=== PATIENT | male | born 1955 | race Caucasian/White ===

== ENCOUNTER 2016-04-17 13:22 | Observation (INO) | payer OTHER ==
[~2016-04-17] VITALS: Ht 182.9 cm; Wt 84.0 kg
[~2016-04-17 13:22] MED LIST: ALBU6.7H INH; ASPI325T PO; CELE40TA PO; HYDR10TA16 PO; LISI-590 PO; PLAV75TA PO; PRAV10 PO; RANI150 PO; XANA1TAB6 PO
[2016-04-17 13:30] VITALS: BP 139/96; PULSE 86; RESP 17; TEMP 97.8; O2SAT 97
[2016-04-17 13:40] VITALS: RESP 18; O2SAT 98
[2016-04-17] MEDS ORDERED: NORC5TAB PO (13:40)
[2016-04-17] MEDS ORDERED: LEVO.1 PO (13:40)
[2016-04-17] MEDS ORDERED: DIVA250ER PO (13:40)
[2016-04-17] MEDS ORDERED: PRAV40TA2 PO (13:40)
[2016-04-17] MEDS ORDERED: XANA1TAB2 PO (13:40)
[2016-04-17] MEDS ORDERED: ASPI325T PO (13:40)
[2016-04-17] MEDS ORDERED: REST30CA PO (13:40)
[2016-04-17] MEDS ORDERED: NORV2.5T PO (13:40)
[2016-04-17] MEDS ORDERED: LISI40TA PO ×2 (13:40→14:50)
[2016-04-17] MEDS ORDERED: SODIUM CHLORIDE 0.9% FLUSH 5 ML FLUSH IVF PRN (13:45)
--- NOTE | 2016-04-17 13:45 | PD ---
HPI Chief Complaint: Neuro Symptoms/ Deficits Time Seen by Provider: 13:39 Travel History International Travel<30 days: No Contact w/Intl Traveler<30days: No Traveled to known affect area: No History of Present Illness HPI 61-year-old male presents to the emergency department for altered mental status. Apparently, the patient had a doctor's appointment this morning at 10: 15. He saw a nurse practitioner at their office. She states he was confused at that time, but he was discharged and became worse. At that time EMS was called. The patient cancer his name and knows who the president is. However, he thinks the year is 2011 and believes he is in [place]. The patient states he feels "bad". He states this started 3 days ago. He does report a history of CVA, TIA, seizures. His primary care physician is Dr. Mahajan. He does see Dr. Guzman, neurologist. The patient states he has a headache. He denies any fevers. PFSH Past Medical History Hx Anticoagulant Therapy: Yes (ASA) Arthritis: Yes Asthma: Yes (CHILDHOOD) Anxiety: Yes Depression: Yes Cancer: No Cardiovascular Problems: Yes High Cholesterol: Yes Cerebrovascular Accident: Yes Diabetes: No Diminished Hearing: No Endocrine: Yes GERD: Yes Glaucoma: No Genitourinary: Yes Hepatitis: No Hiatal Hernia: No Hypertension: Yes Immune Disorder: No Kidney Stones: Yes Musculoskeletal: Yes (CHRONIC BACK PAIN) Neurologic: Yes Psychiatric: Yes Reproductive: No Respiratory: Yes Seizures: Yes Thyroid Disease: Yes (HX THYROID STORM) Ulcer: Yes (PUD) Past Surgical History Abdominal Surgery: Yes (CHOLECYSTECTOMY) Cholecystectomy: Yes Pacemaker: No Social History Alcohol Use: No (quit 8 years ago) Tobacco Use: Yes (1/2 PPD) Substance Use: Yes (MARIJUANA) Allergies-Medications (Allergen,Severity, Reaction): Coded Allergies: Penicillin (Verified Allergy, Severe, THROAT SWELLING, 04/17/16) Reported Meds & Prescriptions Reported Meds & Active Scripts Active Reported Ventolin Hfa 18 GM Inh (Albuterol Sulfate) 90 Mcg/Act Aer 1-2 Puff INH QID PRN Lisinopril 40 Mg Tab 40 Mg PO BID Divalproex ER (Divalproex Sodium) 500 Mg Tab 500 Mg PO TID Topamax (Topiramate) 100 Mg Tab 100 Mg PO TID Hydrocodone-Acetaminophen 10-325 mg Tab 1 Tab PO QID Norvasc (Amlodipine Besylate) 2.5 Mg Tab 2.5 Mg PO DAILY Pravastatin 40 Mg Tab 40 Mg PO HS Restoril (Temazepam) 30 Mg Cap 30 Mg PO HS PRN Xanax (Alprazolam) 1 Mg Tab 1 Mg PO TID Synthroid (Levothyroxine Sodium) 100 Mcg Tab 100 Mcg PO DAILY Aspirin 325 Mg Tab 325 Mg PO DAILY Review of Systems Except as stated in HPI: all other systems reviewed are Neg Physical Exam Narrative GENERAL: Well-developed well-nourished elderly male patient, drowsy. Oriented to self. SKIN: Warm and dry. HEAD: Normocephalic. Atraumatic. EYES: No scleral icterus. No injection or drainage. PERRLA. Patient unable to completely EOMs. NECK: Supple, trachea midline. No JVD or lymphadenopathy. CARDIOVASCULAR: Regular rate and rhythm without murmurs, gallops, or rubs. RESPIRATORY: Breath sounds equal bilaterally. No accessory muscle use. Lungs sounds are clear to auscultation GASTROINTESTINAL: Abdomen soft, non-tender, nondistended. MUSCULOSKELETAL: No cyanosis, or edema. Bilateral upper and lower extremity strength 5/5. All extremities are neurovascularly intact. [id number] is normal bilaterally. However, patient is unable to follow commands to complete finger to nose. BACK: Nontender without obvious deformity. No CVA tenderness. Data Data Last Documented VS Vital Signs Date Time Temp Pulse Resp B/P Pulse Ox O2 Delivery O2 Flow Rate FiO2 04/17/16 14:58 77 17 105/60 97 Room Air 04/17/16 13:30 97.8 Orders Electrocardiogram (04/17/16 ) Ammonia (04/17/16 13:37) Complete Blood Count With Diff (04/17/16 13:37) Comprehensive Metabolic Panel (04/17/16 13:37) Creatine Kinase (Cpk) (04/17/16 13:37) Prothrombin Time / Inr (Pt) (04/17/16 13:37) Act Partial Throm Time (Ptt) (04/17/16 13:37) Troponin I (04/17/16 13:37) Urinalysis - C+S If Indicated (04/17/16 13:37) Chest, Single Ap (04/17/16 13:37) Ct Brain W/O Iv Contrast(Rout) (04/17/16 13:37) Blood Glucose (04/17/16 13:37) Ecg Monitoring (04/17/16 13:37) Iv Access Insert/Monitor (04/17/16 13:37) Oximetry (04/17/16 13:37) Sodium Chloride 0.9% Flush (Ns Flush) (04/17/16 13:45) Drug Screen, Random Urine (04/17/16 13:37) Alcohol (Ethanol) (04/17/16 13:37) Labs Laboratory Tests Test 04/17/16 14:00 White Blood Count 8.9 TH/MM3 Red Blood Count 3.79 MIL/MM3 Hemoglobin 13.0 GM/DL Hematocrit 37.8 % Mean Corpuscular Volume 99.9 FL Mean Corpuscular Hemoglobin 34.3 PG Mean Corpuscular Hemoglobin 34.3 % Concent Red Cell Distribution Width 14.0 % Platelet Count 203 TH/MM3 Mean Platelet Volume 8.5 FL Neutrophils (%) (Auto) 53.1 % Lymphocytes (%) (Auto) 33.5 % Monocytes (%) (Auto) 9.7 % Eosinophils (%) (Auto) 3.2 % Basophils (%) (Auto) 0.5 % Neutrophils # (Auto) 4.8 TH/MM3 Lymphocytes # (Auto) 3.0 TH/MM3 Monocytes # (Auto) 0.9 TH/MM3 Eosinophils # (Auto) 0.3 TH/MM3 Basophils # (Auto) 0.0 TH/MM3 CBC Comment DIFF FINAL Differential Comment Prothrombin Time 11.3 SEC Prothromb Time International 1.0 RATIO Ratio Activated Partial 27.8 SEC Thromboplast Time Sodium Level 145 MEQ/L Potassium Level 4.1 MEQ/L Chloride Level 115 MEQ/L Carbon Dioxide Level 22.7 MEQ/L Anion Gap 7 MEQ/L Blood Urea Nitrogen 23 MG/DL Creatinine 0.98 MG/DL Estimat Glomerular Filtration 78 ML/MIN Rate Random Glucose 91 MG/DL Calcium Level 8.1 MG/DL Total Bilirubin 0.2 MG/DL Aspartate Amino Transf 31 U/L (AST/SGOT) Alanine Aminotransferase 62 U/L (ALT/SGPT) Alkaline Phosphatase 73 U/L Ammonia 88 MCMOL/L Total Creatine Kinase 36 U/L Troponin I LESS THAN 0.02 NG/ML Total Protein 7.0 GM/DL Albumin 3.4 GM/DL Ethyl Alcohol Level LESS THAN 3 MG/DL MDM Medical Decision Making Medical Screen Exam Complete: Yes Emergency Medical Condition: Yes Medical Record Reviewed: Yes Interpretation(s) Last Impressions Head CT 04/17/16 1337 Signed Impressions: Service Date/Time: April 14:23 - CONCLUSION: Normal examination. Kartik Mcrae MD Chest X-Ray 04/17/16 1337 Signed Impressions: Service Date/Time: April 14:22 - CONCLUSION: Normal examination. Kartik Mcrae MD Differential Diagnosis TIA versus CVA versus electrolyte abnormality versus intracranial hemorrhage Narrative Course 61-year-old male presents to the emergency department for altered mental status from his primary care physician's office. Upon my assessment, the patient is only oriented to self. However, apparently 5 minutes later, the patient is now alert and oriented to person, place and time. EKG, CBC, CMP, CK, troponin, PTT , PTT/INR, UA, chest x-ray, CT of the brain, urine drug screen, alcohol level, ammonia level are ordered and pending. EKG shows sinus rhythm, heart rate 75, no acute ST changes. CBC shows no acute abnormalities. CMP shows no acute abnormality. CK is 36. Troponin is less than 0.02. Ammonia level is elevated at 88. Coags are unremarkable. Alcohol level is less than 3. UDS and UA are pending. Chest x-ray is normal. CT of the brain is normal. I discussed results with the patient. The patient will be admitted for 23 hour observation for TIA. [facility] is paged for admission. Dr. Knowles accepted admission. Yissel Franco Apr 17, 2016 13:45
[2016-04-17 14:07] LABS: AUTOMATED NEUTROPHIL # 4.8 TH/MM3 (1.8-7.7); BASOPHIL % 0.5 % (0.0-2.0); EOSINOPHIL # 0.3 TH/MM3 (0-0.4); EOSINOPHIL % 3.2 % (0.0-4.0); HEMATOCRIT 37.8 % (39.0-51.0); HEMO FLAGS DIFF FINAL; LYMPH % 33.5 % (9.0-44.0); MEAN CELL VOLUME 99.9 FL (80.0-100.0); MEAN CORPUSCULAR HEMOGLOBIN 34.3 PG (27.0-34.0); MEAN CORPUSCULAR HGB CONC 34.3 % (32.0-36.0); MONO % 9.7 % (0.0-8.0); NEUT % 53.1 % (16.0-70.0); PLATELET COUNT 203 TH/MM3 (150-450); RED BLOOD COUNT 3.79 MIL/MM3 (4.50-5.90); WHITE BLOOD COUNT 8.9 TH/MM3 (4.0-11.0)
[2016-04-17 14:13] LABS: APTT (PATIENT) 27.8 SEC (24.3-30.1); PROTHROMBIN TIME - PATIENT 11.3 SEC (9.8-11.6)
[2016-04-17 14:28] LABS: ALT (GPT) 62 U/L (12-78); ANION GAP 7 MEQ/L (5-15); AST (GOT) 31 U/L (15-37); BICARBONATE 22.7 MEQ/L (21.0-32.0); BLOOD UREA NITROGEN 23 MG/DL (7-18); CHLORIDE 115 MEQ/L (98-107); GLOMERULAR FILTRATION RATE 78 ML/MIN (>89); POTASSIUM 4.1 MEQ/L (3.5-5.1); SODIUM (NA) 145 MEQ/L (136-145)
[2016-04-17 14:32] LABS: ALKALINE PHOSPHATASE 73 U/L (45-117); TOTAL BILIRUBIN ADULT 0.2 MG/DL (0.2-1.0)
[2016-04-17 14:34] LABS: CREATINE KINASE 36 U/L (39-308)
--- NOTE | 2016-04-17 14:42 | RADRPT ---
EXAM DATE/TIME: 04/17/2016 14:23 [facility] COMPARISON: CT BRAIN W/O CONTRAST, November 30, 2012, 15:02. INDICATIONS : Altered mental status. Confused. RADIATION DOSE: 37.41 CTDIvol (mGy) MEDICAL HISTORY : Seizures. Cerebrovascular disease. Hypertension. SURGICAL HISTORY : None. ENCOUNTER: Initial ACUITY: 1 day PAIN SCALE: 0/10 LOCATION: cranial TECHNIQUE: Multiple contiguous axial images were obtained of the head. Using automated exposure control and adj ustment of the mA and/or kV according to patient size, radiation dose was kept as low as reasonably a chievable to obtain optimal diagnostic quality images. FINDINGS: CEREBRUM: The ventricles are normal for age. No evidence of midline shift, mass lesion, hemorrhage or acute in farction. No extra-axial fluid collections are seen. POSTERIOR FOSSA: The cerebellum and brainstem are intact. The 4th ventricle is midline. The cerebellopontine angle i s unremarkable. EXTRACRANIAL: The visualized portion of the orbits is intact. SKULL: The calvaria is intact. No evidence of skull fracture. CONCLUSION: Normal examination. Kartik Mcrae MD on April 17, 2016 at 14:41 Board Certified Radiologist. This report was verified electronically.
[2016-04-17] MEDS ORDERED: TOPA100T11 PO (14:44)
[2016-04-17] MEDS ORDERED: HYDR-3583 PO (14:44)
[2016-04-17] MEDS ORDERED: DIVA500T3 PO (14:50)
[2016-04-17] MEDS ORDERED: VENTAER INH (14:50)
[2016-04-17 14:58] VITALS: BP 105/60; PULSE 77; RESP 17; O2SAT 97
--- NOTE | 2016-04-17 15:08 | RADRPT ---
EXAM DATE/TIME: 04/17/2016 14:22 [facility] COMPARISON: CHEST SINGLE AP, September 24, 2012, 13:27. INDICATIONS : Patient states he had chest pain that started this morning. MEDICAL HISTORY : None. SURGICAL HISTORY : None. ENCOUNTER: Initial ACUITY: 1 day PAIN SCORE: 4/10 LOCATION: chest FINDINGS: A single view of the chest demonstrates the lungs to be symmetrically aerated without evidence of mas s, infiltrate or effusion. The cardiomediastinal contours are unremarkable. Osseous structures are intact. CONCLUSION: Normal examination. Kartik Mcrae MD on April 17, 2016 at 15:06 Board Certified Radiologist. This report was verified electronically.
[2016-04-17] MEDS ORDERED: ONDANSETRON HCL 4 MG/2 ML VIAL IVP PRN (16:00)
[2016-04-17] MEDS ORDERED: MAGNESIUM HYDROXIDE SUSP 30 ML CUP PO PRN (16:00)
[2016-04-17] MEDS ORDERED: NALOXONE HCL 0.4 MG/ML AMP IV PRN (16:00)
[2016-04-17] MEDS ORDERED: ACETAMINOPHEN 325 MG TAB PO PRN (16:00)
[2016-04-17] MEDS ORDERED: SODIUM CHLORIDE 0.9% FLUSH 5 ML FLUSH FLUSH PRN (16:00)
[2016-04-17] MEDS ORDERED: TEMAZEPAM 15 MG CAP PO PRN (17:45)
[2016-04-17] MEDS ORDERED: ALBUTEROL SULFATE 90 MCG/ACT HFA 8 GM INHALER INH PRN (17:45)
[2016-04-17] MEDS ORDERED: PILL SPLITTER OTHER PRN (18:00)
[2016-04-17] MEDS ORDERED: ALPRAZolam 1 MG TAB PO SCH (18:00)
[2016-04-17] MEDS ORDERED: DIVALPROEX SODIUM E.R. 500 MG TAB PO SCH (18:00)
[2016-04-17] MEDS ORDERED: TOPIRAMATE 100 MG TAB PO SCH (18:00)
--- NOTE | 2016-04-17 18:02 | HHI.HP ---
HPI Service [facility] Primary Care Physician Unknown Admission Diagnosis TIA Diagnoses: Chief Complaint: Altered mental status, questionable TIA Travel History International Travel<30 Days: No Contact w/Intl Traveler <30 Da: No Traveled to Known Affected Are: No History of Present Illness Mr. Jolly is a 61-year-old male with primary medical history of seizures, CVA, TIA, anxiety, HTN, HLD, hypothyroidism who came in to the hospital for altered mental status. Patient states he was seen at his PCPs office yesterday - Dr. Mahajan. States he was advised to quit smoking, drinking although he quit 7 years ago, and gradually quit taking his Xanax. He was discharged home after the doctor's appointment but found today to be wandering around the parking lot and EMS was called for him. Patient states he hasn't been "feeling good, not having a good time, having headache." But all of it is better now. States he started to feel bad few days ago. Also have episode of seizure last week. States that he has weakly seizures described as tonic-clonic shaking. Denies any trauma or falling. States that he can feel his seizure is coming and he usually sits down. Patient reports being anxious, and nervous. Reports chronic cough secondary to smoking, otherwise denies congestion. On exam, patient denies any numbness, tingling sensation, weakness. Denies pain and discomfort. Denies SOB/ dyspnea. Denies chest pain, palpitations, dizziness. Denies fevers, chills, n/v/d. EKG shows sinus rhythm heart rate of 75, no ST changes noted. Labs reviewed CBC no significant abnormality, CMP no significant abnormality, low GFR 78, low calcium 8.1, high chloride 115. Elevated ammonia level at 88. CK at 36. Troponin less than 0.02. Alcohol less than 3. Chest x-ray showed normal examination. CT of the head showed normal examination. Review of Systems Except as stated in HPI: all other systems reviewed are Neg Past Family Social History Past Medical History CVA TIA 3 Seizure being followed by Dr. Guzman Arthritis Anxiety Depression GERD Chronic back pain Hypothyroidism PUD Hypertension Hyperlipidemia Past Surgical History Cholecystectomy Appendectomy Tonsillectomy Reported Medications Ventolin Hfa 18 GM Inh (Albuterol Sulfate) 90 Mcg/Act Aer 1-2 Puff INH QID PRN Lisinopril 40 Mg Tab 40 Mg PO BID Divalproex ER (Divalproex Sodium) 500 Mg Tab 500 Mg PO TID Topamax (Topiramate) 100 Mg Tab 100 Mg PO TID Hydrocodone-Acetaminophen 10-325 mg Tab 1 Tab PO QID Norvasc (Amlodipine Besylate) 2.5 Mg Tab 2.5 Mg PO DAILY Pravastatin 40 Mg Tab 40 Mg PO HS Restoril (Temazepam) 30 Mg Cap 30 Mg PO HS PRN Xanax (Alprazolam) 1 Mg Tab 1 Mg PO TID Synthroid (Levothyroxine Sodium) 100 Mcg Tab 100 Mcg PO DAILY Aspirin 325 Mg Tab 325 Mg PO DAILY Allergies: Coded Allergies: Penicillin (Verified Allergy, Severe, THROAT SWELLING, 04/17/16) Active Ordered Medications Current Medications Medications (Trade) Dose Ordered Sig/Long Route Start Time Stop Time Status Last Admin (NS Flush) 2 ml UNSCH PRN FLUSH 04/17/16 16:00 (NS Flush) 2 ml BID FLUSH 04/17/16 21:00 (Tylenol) 650 mg Q4H PRN PO 04/17/16 16:00 (Zofran Inj) 4 mg Q6H PRN IVP 04/17/16 16:00 (Milk Of Magnesia Liq) 30 ml Q12H PRN PO 04/17/16 16:00 (Narcan Inj) 0.4 mg UNSCH PRN IV 04/17/16 16:00 Family History Reports unknown family medical history Social History Lives with . Denies alcohol use. Quit 7 years ago Tobacco use half a pack a day current day smoker. Denies illicit drug use Physical Exam Vital Signs Vital Signs Date Time Temp Pulse Resp B/P Pulse Ox O2 Delivery O2 Flow Rate FiO2 04/17/16 14:58 77 17 105/60 97 Room Air 04/17/16 13:40 18 98 Room Air 04/17/16 13:30 97.8 86 17 139/96 97 04/17/16 13:30 76 18 Physical Exam GENERAL: This is a well-nourished, well-developed patient, anxious. SKIN: No rashes, ecchymoses or lesions. Cool and dry. HEAD: Atraumatic. Normocephalic. No temporal or scalp tenderness. EYES: Pupils equal round and reactive. Extraocular motions intact. No scleral icterus. No injection or drainage. ENT: Nose without bleeding. Throat without erythema. Uvula midline. Airway patent. Tongue midline. Dry oral mucosa. NECK: Trachea midline. No JVD or lymphadenopathy. CARDIOVASCULAR: Regular rate and rhythm without murmurs, gallops, or rubs. RESPIRATORY: Breath sounds equal bilaterally. No wheezes, rales, or rhonchi. Moderate air exchange. GASTROINTESTINAL: Abdomen soft, non-tender, nondistended. Bowel sounds active 4. MUSCULOSKELETAL: Extremities without clubbing, cyanosis, or edema. No joint tenderness, effusion, or edema noted. No calf tenderness. Negative Homans sign bilaterally. NEUROLOGICAL: Awake and alert. Cranial nerves II through XII intact. Motor and sensory grossly within normal limits. Five out of 5 muscle strength in all muscle groups. Speech is slow. Confusion noted. Oriented to self and situation, but not place and time. Noted mild expressive aphasia. Laboratory Laboratory Tests Test 04/17/16 14:00 White Blood Count 8.9 Red Blood Count 3.79 Hemoglobin 13.0 Hematocrit 37.8 Mean Corpuscular Volume 99.9 Mean Corpuscular Hemoglobin 34.3 Mean Corpuscular Hemoglobin 34.3 Concent Red Cell Distribution Width 14.0 Platelet Count 203 Mean Platelet Volume 8.5 Neutrophils (%) (Auto) 53.1 Lymphocytes (%) (Auto) 33.5 Monocytes (%) (Auto) 9.7 Eosinophils (%) (Auto) 3.2 Basophils (%) (Auto) 0.5 Neutrophils # (Auto) 4.8 Lymphocytes # (Auto) 3.0 Monocytes # (Auto) 0.9 Eosinophils # (Auto) 0.3 Basophils # (Auto) 0.0 CBC Comment DIFF FINAL Differential Comment Prothrombin Time 11.3 Prothromb Time International 1.0 Ratio Activated Partial 27.8 Thromboplast Time Sodium Level 145 Potassium Level 4.1 Chloride Level 115 Carbon Dioxide Level 22.7 Anion Gap 7 Blood Urea Nitrogen 23 Creatinine 0.98 Estimat Glomerular Filtration 78 Rate Random Glucose 91 Calcium Level 8.1 Total Bilirubin 0.2 Aspartate Amino Transf 31 (AST/SGOT) Alanine Aminotransferase 62 (ALT/SGPT) Alkaline Phosphatase 73 Ammonia 88 Total Creatine Kinase 36 Troponin I LESS THAN 0.02 Total Protein 7.0 Albumin 3.4 Ethyl Alcohol Level LESS THAN 3 Result Diagram: 04/17/16 1400 04/17/16 1400 Imaging Last Impressions Head CT 04/17/16 1337 Signed Impressions: Service Date/Time: April 14:23 - CONCLUSION: Normal examination. Kartik Mcrae MD Chest X-Ray 04/17/167 Signed Impressions: Service Date/Time: April 14:22 - CONCLUSION: Normal examination. Kartik Mcrae MD Assessment and Plan Problem List: (1) HLD (hyperlipidemia) ICD Code: E78.5 Status: Chronic (2) HTN (hypertension) ICD Code: I10 Status: Chronic (3) Encephalopathy ICD Code: G93.40 Status: Acute (4) Seizure ICD Code: R56.9 Status: Chronic (5) Hypothyroidism ICD Code: E03.9 Status: Chronic (6) TIA (transient ischemic attack) ICD Code: G45.9 Status: Acute Assessment and Plan Mr. Jolly is a 61-year-old male with primary medical history of seizures, CVA, TIA, anxiety, HTN, HLD, hypothyroidism who came in to the hospital for altered mental status. Patient states he was seen at his PCPs office yesterday - Dr. Mahajan. States he was advised to quit smoking, drinking although he quit 7 years ago, and gradually quit taking his Xanax. He was discharged home after the doctor's appointment but on admission day found to be wandering around the parking lot and EMS was called for him. Encephalopathy - confuse, questionable aphasia, slow speech, slow thought process - Ammonia level elevated 88. Recheck levels tomorrow - Check Depakote/ Valproic acid level - Lactulose ? Seizure versus TIA - EEG ordered. Follow-up results - CT of the head shows normal examination. - Neurology consulted and put appreciated. Patient is being followed by Dr. Guzman as an outpatient. - Seizure precaution. Fall precaution. - Check Depakote level - Continue Divalproex and Topamax dose appropriate HTN - continue home meds Norvasc 2.5 mg daily, ASA 325 mg, lisinopril 40 mg twice a day - Monitor BP trend Hypothyroidism - continue Synthroid 100 g daily - Check TSH HLD - continue pravastatin 40 mg daily Anxiety, depression, insomnia - continue Xanax use 3 times a day. Continue temazepam when necessary Patient states he is very nervous, wanting to sign AMA but counseled and advised to stay. He wants his to be involved with his care. Will notify nursing to call family member/ to be with patient. DVT prop SCDs, ambulatory Written by Jose Hernandez, acting as scribe for Dr. Knowles on 04/17/16 at 17: 08. Code Status Full code Discussed Condition With Patient, nursing Attending Statement The documentation accurately reflects the work performed [id number] by me on at 1708. Jose Ruelas Apr 17, 2016 18:02 Jean Knowles MD Apr 17, 2016 18:54
[2016-04-17 18:30] VITALS: BP 130/77; PULSE 68; RESP 17; TEMP 97.8; O2SAT 99
[2016-04-17 18:41] VITALS: BP 142/65; PULSE 90; RESP 22; TEMP 97.5; O2SAT 95
[2016-04-17 18:49] LABS: BLOOD, URINE NEG (NEG); GLUCOSE,URINE NEG (NEG); HYALINE CAST, URINE 4 /lpf (RARE); KETONE, URINE NEG (NEG); NITRITE,URINE NEG (NEG); URINE COLOR YELLOW (YELLW/STRAW)
[2016-04-17 18:51] LABS: COMMENT (UR) CATH-CULT NOT IND; CULTURE IF INDICATED CATH CULTURE NOT IND
[2016-04-17 19:07] LABS: AMPHETAMINE, URINE NEG (NEG); BARBITURATES, URINE NEG (NEG); COCAINE, URINE NEG (NEG)
[2016-04-17] MEDS ORDERED: levETIRAcetam 500 MG TAB PO SCH (20:15)
[2016-04-17] MEDS ORDERED: CLOPIDOGREL 75 MG TAB PO SCH (20:15)
[2016-04-17] MEDS ORDERED: PRAVASTATIN SOD 40 MG TAB PO SCH (21:00)
[2016-04-17] MEDS ORDERED: LISINOPRIL 20 MG TAB PO SCH (21:00)
[2016-04-17] MEDS ORDERED: SODIUM CHLORIDE 0.9% FLUSH 5 ML FLUSH FLUSH SCH (21:00)
[2016-04-17 22:00] VITALS: PULSE 84
--- NOTE | 2016-04-17 22:17 | RADRPT ---
EXAM DATE/TIME: 04/17/2016 21:11 [facility] COMPARISON: No previous studies available for comparison. INDICATIONS : Cerebrovascular accident. MEDICAL HISTORY : Hypercholesterolemia. Hypertension. Arthritis. Thyroid disease. CVA. Seizures. Asthma. GERD. Ulcer. G ERD. Renal calculi. Chronic back pain. Depression. Anxiety. Substance use. Anticoagulant therapy, Asp irin. SURGICAL HISTORY : Cholecystectomy. ORIF left thumb. ENCOUNTER: Initial ACUITY: 1 day PAIN SCORE: 0/10 LOCATION: Bilateral neck PEAK SYSTOLIC VELOCITIES (cm/sec): ICA/CCA RATIO: Right: 1.3 Left: 0.9 ICA: Right: 124 Left: 91 CCA: Right: 94 Left: 102 ECA: Right: 142 Left: 135 VERTEBRAL: Right: 82 antegrade Left: 92 antegrade Elevated flow velocities and ICA/CCA ratios have been found to correlate with increased degrees of vessel stenosis, calculated as percentage of diameter relative to a normal segment of distal ICA/CCA FINDINGS: Antegrade flow is seen in both vertebral arteries. There is moderate atherosclerotic plaquing at the origin of both ICAs without any significant stenosis. CONCLUSION: No evidence for hemodynamically significant stenosis. Ute Angelo MD on April 17, 2016 at 22:15 Board Certified Radiologist. This report was verified electronically.
[2016-04-18 01:16] VITALS: BP 130/75; PULSE 71; RESP 18; TEMP 98; O2SAT 96
[2016-04-18] MEDS ORDERED: LEVOTHYROXINE SODIUM 100 MCG TAB PO SCH (06:00)
--- NOTE | 2016-04-18 06:10 | MB ---
cc: JIMENEZ,KENROY DATE OF CONSULTATION 04/17/2016 HISTORY A 61-year-old right-handed man. After taking a shower he had slurred speech, trouble ambulating, felt lightheaded. The symptoms had resolved. Basically his MRI of the brain, MRA of the neck and [place] were essentially unremarkable. He is left vertebral dominant. He tells me he has seizures about once a month and migraine headaches for which she sees Dr. Guzman. He takes Depakote and Topamax. Nevertheless he was admitted today. He had a doctor's appointment. He was confused, became worse. He tells me had some trouble talking and fell to the floor which is his usual seizure and he feels like what happened today was his usual seizure. PAST MEDICAL HISTORY 1. History of seizures. 2. Anxiety. 3. Hypertension. 4. Hyperlipidemia. 5. Hypothyroidism. 6. Possible stroke or TIA in the past, although a negative workup here. 7. Chronic back pain. MEDICATIONS 1. Ventolin. 2. Lisinopril. 3. Depakote ER 500 t.i.d. 4. Topamax 100 t.i.d. 5. Hydrocodone. 6. Norvasc. 7. Pravastatin. 8. Restoril. 9. Xanax 1 milligram t.i.d. 10. Synthroid. 11. Aspirin 325 a day. ALLERGIES PENICILLIN. REVIEW OF SYSTEMS He did note he had a history of hypertension, insulin-dependent diabetes mellitus, hypercholesterolemia. He is tells me took an aspirin 81 mg a day. He denied NE, CABG, stent, angioplasty, A-fib, Coumadin, renal, hepatic or pulmonary disease, thyroid disease, lupus, ulcer, cancer or stroke. SOCIAL HISTORY He is a smoker, not a drinker. He lives with a significant other. FAMILY HISTORY Negative for cancer seizure or stroke. PHYSICAL EXAMINATION VITAL SIGNS: Afebrile, 90, 22, 142/65. NECK: There were no carotid bruits. HEART: Regular rhythm. I do not detect a murmur. Pupils are equal. Visual sanchez are full. Extraocular movements intact, without nystagmus. Face is symmetric with normal sensation. Tongue was midline. There is no drift. He had normal strength in upper and lower extremities bilaterally. DTRs trace throughout. Toes downgoing bilaterally. Pinprick is intact throughout. His speech is a little bit slow but he gets out his words well. He is not aphasic, a little slow to think, I would think that possibly could be his baseline versus a postictal state. LABORATORY DATA CBC is normal. Urine drug screen is positive for opiates, benzodiazepines and marijuana His Depakote level was 104. UA was negative. Basic metabolic profile essentially normal. LFTs are normal. Ammonia level is was 88, likely from the Depakote. Troponin is negative. CPK was normal. LDL cholesterol in the past has been 106. B12 was low-normal in the past. Coags normal. CBC normal. He had a CT scan of his brain which was read as normal. Chest x-ray normal Neck CTA from 2013 - No significant stenosis, small right vertebral. He is left vertebral dominant. MRA of the brain has been normal in the past. He had an echocardiogram back in 2012 which was normal. IMPRESSION Probably a seizure. I note he had an EEG in 2013 that was normal. RECOMMENDATIONS I would just check an MRI of the brain and an EEG and I am going to add on Keppra 500 b.i.d. now. He can follow up with Dr. Guzman for seizures. If his MRI is negative and EEG is done, he could be discharged. I think it is unlikely he had a TIA. In the meantime we can put him on Plavix and stop his aspirin in three days. I note he has been in sinus rhythm. We will also check carotid ultrasound which will likely be negative with the negative CTAs in the past. MD KARLIE Perez/TOO /8:01 PM /5:41 AM
[2016-04-18] MEDS ORDERED: ASPIRIN 325 MG TAB PO SCH (09:00)
[2016-04-18] MEDS ORDERED: LISINOPRIL 20 MG TAB PO SCH (09:00)
[2016-04-18] MEDS ORDERED: amLODIPine BESYLATE 5 MG TAB PO SCH (09:00)
--- NOTE | 2016-04-18 23:34 | EKG ---
Date Performed: 04/17/2016 Time Performed: 14:05:19 PTAGE: 61 years EKG: Sinus rhythm NORMAL ECG PREVIOUS TRACING : 11/30/2012 14.49 DOCTOR: Gaston Mcconnell Interpretating Date/Time 04/18/2016 23:32:00
== END 2016-04-18 06:37 | disposition left against medical advice (07) ==
LOC: NEPC 13:22 → NEDA 15:52 → NEPGCP 18:39
PROVIDERS: ADMIT Family Medicine; ATTEND Family Medicine
DX: R41.82 Altered mental status, unspecified (principal); R56.9 Unspecified convulsions; R47.81 Slurred speech; F41.9 Anxiety disorder, unspecified; F32.9 Major depressive disorder, single episode, unspecified; M54.9 Dorsalgia, unspecified; G89.29 Other chronic pain; I10 Essential (primary) hypertension; K21.9 Gastro-esophageal reflux disease without esophagitis; F17.210 Nicotine dependence, cigarettes, uncomplicated; Z79.82 Long term (current) use of aspirin; Z86.73 Personal history of transient ischemic attack (TIA), and cerebral infarction without residual deficits
CPT/HCPCS: 70450; 71010; 80053; 80164; 80307; 80320; 81001; 82140; 82550; 82607; 84484; 85025; 85610; 85730; 93005; 93880; 99285; G0378